=== PATIENT | male | born 1975 | race Caucasian/White ===

== ENCOUNTER 2017-08-09 22:33 | Emergency (ER) | payer SELFPAY ==
[2017-08-09 22:43] VITALS: BP 202/145; PULSE 81; RESP 16; TEMP 36.8; O2SAT 98; BMI 42.5
--- NOTE | 2017-08-09 23:09 | [facility].EDSOB ---
ED Disposition Clinical Impression: Hemoptysis, unspecified, Hypertensive emergency, no CHF Disposition: Home, Self-Care Condition on Discharge: Good Instructions: DI for Hemoptysis Referrals: Rafa Hunt MD [Primary Care Provider] - - Critical Care Critical Care Time: No Attestation: On 08/09/17, the high probability of a clinically significant, sudden or life threatening deterioration of the following system(s) required my full and direct attention, intervention and personal management. The time I documented below is in addition to time spent performing reported procedures but includes the following listed in this critical care notation. Medical Decision Making Vital Signs: 08/09/17 22:43 08/09/17 23:27 08/10/17 00:01 Temperature 98.3 F 98.5 F Temperature Source Oral Oral Pulse Rate [Right Brachial] 81 72 71 Respiratory Rate 16 16 16 Blood Pressure [Right Arm] 202/145 175/118 170/119 Blood Pressure Mean [Right Arm] 164 137 136 Blood Pressure Source [Right Arm] Automatic Cuff Automatic Cuff Automatic Cuff Blood Pressure Position [Right Arm] Sitting Sitting Sitting 02 Sat by Pulse Oximetry 98 97 98 Oxygen Delivery Method Room Air Room Air Room Air 08/10/17 00:59 Temperature 98.5 F Temperature Source Oral Pulse Rate [Right Brachial] 70 Respiratory Rate 16 Blood Pressure [Right Arm] 183/120 Blood Pressure Mean [Right Arm] 141 Blood Pressure Source [Right Arm] Automatic Cuff Blood Pressure Position [Right Arm] Sitting 02 Sat by Pulse Oximetry 98 Oxygen Delivery Method Room Air - Lab Data Lab Results 08/09/17 23:00: WBC 7.2, RBC 4.92, Hgb 14.9, Hct 43.2, MCV 87.8, MCH 30.3, MCHC 34.5, RDW 12.3, Plt Count 205, MPV 7.4, Neut % (Auto) 52.2, Lymph % (Auto) 34.4, Burnett % (Auto) 7.9, Eos % (Auto) 5.1, Baso % (Auto) 0.5, Neut # (Auto) 3.8, Lymph # (Auto) 2.5, Burnett # (Auto) 0.6, Eos # (Auto) 0.4, Baso # (Auto) 0.0 08/09/17 23:00: Sodium 139, Potassium 3.1 L, Chloride 102, Carbon Dioxide 32, Anion Gap 8.1, BUN 12, Creatinine 1.11, Estimated Creat Clear 85, Estimated GFR > 60, Est GFR ( Amer) > 60, Glucose 154 H, Calcium 8.8, Total Bilirubin 0.4, AST 15, ALT 38, Alkaline Phosphatase 57, Total Creatine Kinase 221 H, CK-MB (CK-2) 2.0, CK-MB (CK-2) Rel Index 0.9, Troponin I < 0.02, Total Protein 7.1, Albumin 3.6, Globulin 3.5 H, Albumin/Globulin Ratio 1.0 L Result diagrams: 08/09/17 23:00 08/09/17 23:00 Orders (Tests/Meds): ED MEDICATIONS Generic Name Dose Route Start Last Admin Trade Name Frevianey PRN Reason Stop Dose Admin Sodium Chloride 10 ml 08/09/17 23:15 Saline Flush 10ml Syringe IV 09/08/17 23:14 NEEDED PRN Maintain IV Site Sodium Chloride 10 ml 08/10/17 01:11 08/10/17 01:11 Rad-Saline Flush 10ml Syringe IV 09/09/17 01:10 10 ml NEEDED PRN Administration Maintain IV Site Discontinued Medications Generic Name Dose Route Start Last Admin Trade Name Freq PRN Reason Stop Dose Admin Clonidine HCl 0.1 mg 08/10/17 00:10 08/10/17 00:40 Clonidine 0.1mg Tablet PO 08/10/17 00:11 0.1 mg ONCE ONE Administration Clonidine HCl 0.1 mg 08/10/17 01:12 08/10/17 01:15 Clonidine 0.1mg Tablet PO 08/10/17 01:13 0.1 mg ONCE ONE Administration Iopamidol 75 ml 08/10/17 01:00 08/10/17 01:03 [id number]; 100ml Vial IV 08/10/17 01:01 70 ml ONCE ONE Administration Sodium Chloride 50 ml 08/10/17 01:07 08/10/17 01:09 Rad-Ns 50ml Vial IV 08/10/17 01:08 50 ml ONCE ONE Administration ORDERS Category Date Time Status CT angio chest Routine Cat Scan 08/10/17 00:05 Taken CXR 2 view (NOT portable) [XR chest 2V] Stat Exams 08/09/17 23:14 Taken - Physician Consults Physician Consulted: [email or web address] Time: 01:25 Reason -: Pt condition - Roddy Inquiry Pt receiving controlled substance: No Resp/SOB HPI - General Chief Complaint: Shortness of Breath/Dyspnea Stated Complaint: coughing up blood Time Seen by Dandre
--- NOTE | 2017-08-09 23:14 | XR_ITS ---
XR chest 2V HISTORY: Cough and hemoptysis ITS.REASON: cough ORDERING PHYSICIAN: Christiano Steiner MD PATIENT AGE: 41 years COMPARISON: 03/20/2015 FINDINGS: Mild cardiomegaly without failure.. There is increased density over the right hemithorax compared to the left probably related to the technique. No definite lobar consolidation or collapse. There is increased density in right infrahilar region likely related to vascular crowding. No acute bony abnormalities. IMPRESSION: Mild cardiomegaly. Otherwise negative
[2017-08-09 23:19] LABS: Basophils % 0.5 % (0.1-2.0); Eosinophils # 0.4 K/mm3 (0.0-0.4); Eosinophils % 5.1 % (0.1-12.0); Hematocrit 43.2 % (42.0-52.0); Hemoglobin 14.9 g/dL (14.1-18.0); Lymphocytes # 2.5 K/mm3 (0.7-4.5); Lymphocytes % 34.4 K/mm3 (10-50); Mean Corpuscular HGB Conc 34.5 g/dL (31.8-35.4); Mean Corpuscular Hemoglobin 30.3 pg (27.0-31.2); Mean Corpuscular Volume 87.8 fl (80-94); Mean Platelet Volume 7.4 fl (7.4-10.4); Monocytes # 0.6 K/mm3 (0.1-1.0); Monocytes % 7.9 % (1.7-9.3); Neutrophils # 3.8 K/mm3 (1.8-7.8); Neutrophils % 52.2 % (37.0-80.0); Platelet Count 205 K/mm3 (142-424); Red Blood Count 4.92 M/mm3 (4.60-6.20); Red Cell Distribution Width 12.3 % (11.5-17.5); White Blood Count 7.2 K/mm3 (4.8-10.8)
[2017-08-09 23:27] VITALS: BP 175/118; PULSE 72; RESP 16; TEMP 36.9; O2SAT 97
[2017-08-09 23:43] LABS: Alanine Aminotransferase 38 U/L (12-78); Albumin Level 3.6 gm/dL (3.4-5.0); Alkaline Phosphatase 57 U/L (46-116); Anion Gap 8.1 mEq/L (5-15); Aspartate Amino Transferase 15 U/L (15-37); Bilirubin,Total 0.4 mg/dL (0.2-1.0); Blood Urea Nitrogen 12 mg/dL (7-18); CKMB Relative Index 0.9 U/L (0-4.0); Calcium 8.8 mg/dL (8.5-10.1); Carbon Dioxide 32 mmol/L (21.0-32.0); Chloride 102 mmol/L (98-107); Creatine Kinase 221 U/L (38-174); Creatinine Clearance Estimated 85 mg/ml (0-300); Creatinine,Serum 1.11 mg/dL (0.70-1.30); Estimated Glomerular Filt Rate > 60 ml/min (>60); GFR (African American) > 60 ML/MIN (>60); Globulin 3.5 gm/dl (1.3-3.2); Glucose 154 mg/dL (74-106); Potassium 3.1 mmoL/L (3.5-5.1); Sodium 139 mmol/L (136-145); Total Protein,Serum 7.1 gm/dL (6.4-8.2); Troponin I < 0.02 ng/ml (0.00-0.06)
[2017-08-10 00:01] VITALS: BP 170/119; PULSE 71; RESP 16; O2SAT 98
--- NOTE | 2017-08-10 00:05 | CT_ITS ---
CT angio chest HISTORY: Cough and hemoptysis ORDERING PHYSICIAN: Christiano Steiner MD PATIENT AGE: 41 years TECHNIQUE: Helical acquisition obtained following the bolus administration of 75 mL of Isovue 370 followed by a saline bolus. Axial, sagittal, and coronal reformatted images are generated and reviewed. COMPARISON: None FINDINGS: PULMONARY ARTERIES:No pulmonary embolus evident. AORTA:No acute finding. No thoracic aortic aneurysm or dissection evident LUNGS:There is groundglass opacification within the right upper lobe centrally which could be related to underlying hemorrhage or pneumonia PLEURAL SPACES:No significant effusion. No evidence of pneumothorax. HEART:Unremarkable. Normal heart size. No significant pericardial effusion. MEDIASTINAL AND HILAR STRUCTURES:No mediastinal or hilar mass evident. No dominant adenopathy. BONY STRUCTURES:No acute bony abnormalities apparent LYMPH NODES:No enlarged lymph nodes evident UPPER ABDOMEN:Unremarkable IMPRESSION: 1. No evidence pulmonary embolus. 2. Groundglass opacification in the central aspect of the right upper lobe which may be related to underlying hemorrhage or pneumonia.
[2017-08-10 00:59] VITALS: BP 183/120; PULSE 70; RESP 16; TEMP 36.9; O2SAT 98
[2017-08-10 01:36] VITALS: BP 170/115; PULSE 74; RESP 16; TEMP 37; O2SAT 98
== END 2017-08-10 01:41 | disposition home or self-care (01) ==
PROVIDERS: Emergency Provider Emergency Medicine; PCP Family Medicine
DX: R04.2 Hemoptysis (principal); I16.1 Hypertensive emergency; Z79.899 Other long term (current) drug therapy; Z79.82 Long term (current) use of aspirin
CPT/HCPCS: 71046; 71275; 80053; 82550; 82553; 84484; 85025; 99283; Q9967

== ENCOUNTER → 2017-08-30 12:25 | Outpatient (POV) | payer SELFPAY | PROVIDERS: PCP Family Medicine; Visit Provider Internal Medicine | DX: Z00.00 Encounter for general adult medical examination without abnormal findings (principal) ==